=== PATIENT | female | born 1960 | race Caucasian/White ===

== ENCOUNTER 2017-07-14 18:30 | Emergency (ER) | payer OTHER ==
[~2017-07-14] VITALS: Ht 157.5 cm; Wt 67.1 kg
[2017-07-14 18:36] VITALS: TEMP 37; Ht 157.5 cm; Wt 67.1 kg
[2017-07-14 20:11] LABS: ALBUMIN 3.6 gm/dl (3.4-5.0); ALT/SGPT 33 U/L (12-78); BLOOD UREA NITROGEN 19 mg/dl (7-18); CALCIUM 8.8 mg/dl (8.5-10.1); CARBON DIOXIDE 26 mmol/L (21-32); CREATININE 0.75 mg/dl (0.60-1.20); GLUCOSE 78 mg/dl (70-99); POTASSIUM 3.8 mmol/L (3.5-5.1); SODIUM 139 mmol/L (136-145)
[2017-07-14 20:16] LABS: ALKALINE PHOSPHATASE 60 U/L (45-117); AST/SGOT 22 U/L (15-37); TOTAL PROTEIN 6.9 gm/dl (6.4-8.2)
[2017-07-14 20:20] LABS: BASO % 0.5 %; BASO ABS # 0.03 K/uL (0-0.2); EOS % 1.4 %; EOS ABS # 0.08 K/uL (0-0.5); HEMATOCRIT 39.3 % (37-47); HEMOGLOBIN 13.2 g/dL (12.0-16.0); IG# 0.01 K/uL (0.00-0.02); LYMPH % 26.6 %; LYMPH ABS # 1.55 K/uL (1.2-3.4); MEAN CELL VOLUME 87.5 fL (80-100); MEAN CORPUSCULAR HEMOGLOBIN 29.4 pg (25-34); MEAN CORPUSCULAR HGB CONC 33.6 g/dl (32-36); MEAN PLATELET VOLUME 10.5 fL (7.4-10.4); MONO % 10.8 %; MONO ABS # 0.63 K/uL (0.11-0.59); NEUT % 60.5 %; NEUT ABS # 3.53 K/uL (1.4-6.5); PLATELET COUNT 229 K/uL (130-400); RED CELL DISTRIBUTION WIDTH CV 14.1 % (11.5-14.5); RED CELL DISTRIBUTION WIDTH SD 45.4 fL (36.4-46.3); WHITE BLOOD COUNT 5.83 K/uL (4.8-10.8)
--- NOTE | 2017-07-14 20:23 | DIAGNOSTIC IMAGING REPORT ---
R VENOUS DOPP LOWER EXT UNILAT HISTORY: 57 years-old Female rle pain, edela acute right lower extremity pain and edema COMPARISON: None available TECHNIQUE: Multiple real-time sonographic images of the right lower extremity deep venous structures were obtained assessing grayscale appearance, color and spectral flow FINDINGS: Occlusive thrombus is noted within one of the two paired posterior tibial veins and also within both of the peroneal veins of the right calf. No additional deep venous thrombosis identified. IMPRESSION: Occlusive deep venous thrombosis is noted within one of the two paired posterior tibial veins and also within both of the peroneal veins of the right calf The above report was generated using voice recognition software. It may contain grammatical, syntax or spelling errors. Electronically signed by: Augustin Nichols M.D. 07/14/2017 8:22 PM Dictated Date/Time: 07/14/2017 8:20 PM
--- NOTE | 2017-07-14 20:27 | EMERGENCY ROOM VISIT NOTE ---
History Report prepared by Mumtaz: Madeline Brooks Under the Supervision of: Dr. Jessie Hobson D.O. First contact with patient: 18:57 Chief Complaint: CALF PAIN Stated Complaint: BLOOD CLOT IN RT CALF History of Present Illness The patient is a 57 year old female who presents to the Emergency Room with complaints of constant right calf pain beginning three weeks ago. The patient reports she fell and broke right ankle three weeks ago. She has had a cast on her right leg for the past three weeks which she had taken off today. When the patient had her cast taken off today, she mentioned to her physician her calf has been hurting more than ankle so she was sent over for an ultrasound. The patient had a Doppler at 5 pm in [place] today and was told she had a blood clot. The patient reports the vehicle monitor technician scanned her whole leg. The patient denies any personal or family history of blood clots. The patient takes three baby aspirins daily. The patient reports a history of kidney stones and a heart murmur. She denies any history of abnormal bleeding. Pt denies headache, change in vision, fevers, palpitations, chest pain, shortness of breath, nausea , vomiting, diarrhea, pain with urination, and melena. Source of History: patient Onset: three weeks ago Position: leg (right) Quality: other (pain) Timing: constant Associated Symptoms: No fevers, No headache, No chest pain, No SOB, No nausea, No vomiting, No diarrhea, No urinary symptoms Review of Systems See HPI for pertinent positives & negatives. A total of 10 systems reviewed and were otherwise negative. Past Medical & Surgical Medical Problems: (1) Heart murmur (2) Kidney stone (3) No significant medical problems (4) No significant past surgical history (5) Renal colic on right side (6) Renal colic, bilateral (7) Right ureteral calculus (8) Sacrococcygeal pain Family History Diabetes mellitus Kidney stones Social History Smoking Status: Never Smoker Alcohol Use: occasionally Marital Status: Housing Status: lives with family Occupation Status: employed Current/Historical Medications Scheduled Rivaroxaban (Xarelto), 1 TAB PO BID Allergies Coded Allergies: Astemizole (Verified Allergy, Severe, rash, 08/26/15) Cephalexin (Verified Allergy, Severe, rash, 08/26/15) Naproxen (Verified Allergy, Severe, rash, 08/26/15) Sulfa Drugs (Verified Allergy, Unknown, ., 08/26/15) Physical Exam Vital Signs Date Time Temp Pulse Resp B/P (MAP) Pulse Ox O2 Delivery O2 Flow Rate FiO2 07/14/17 21:00 73 20 149/76 96 Room Air 07/14/17 18:36 37.0 80 17 178/95 97 Room Air Physical Exam GENERAL: alert, well appearing, well nourished, no distress, non-toxic EYE EXAM: normal conjunctiva, PERRL and EOM's grossly intact OROPHARYNX: no exudate, no erythema, lips, buccal mucosa, and tongue normal and mucous membranes are moist NECK: supple, no nuchal rigidity, no adenopathy, non-tender LUNGS: Clear to auscultation. Normal chest wall mechanics HEART: no murmurs, S1 normal and S2 normal ABDOMEN: abdomen soft, non-tender, normo-active bowel sounds, no masses, no rebound or guarding. BACK: Back is symmetrical on inspection and there is no deformity, no midline tenderness, no CVA tenderness. SKIN: no rashes and no bruising UPPER EXTREMITIES: upper extremities are grossly normal. LOWER EXTREMITIES: Ecchymotic regions on right lower extremity, edema to right lower extremity, no palpable ropiness or mass, good pulses, mildly tender to palpation. NEURO EXAM: Normal sensorium, cranial nerves II-XII grossly intact, normal speech, no gross weakness of arms, no gross weakness of legs. Medical Decision & Procedures ER Provider Diagnostic Interpretation: Radiology results have been interpreted by the radiologist and reviewed by me. R VENOUS DOPP LOWER EXT UNILAT FINDINGS: Occlusive thrombus is noted within one of the two paired posterior tibial veins and also within both of the peroneal veins of the right calf. No additional deep venous thrombosis identified. IMPRESSION: Occlusive deep venous thrombosis is noted within one of the two paired posterior tibial veins and also within both of the peroneal veins of the right calf The above report was generated using voice recognition software. It may contain grammatical, syntax or spelling errors. Electronically signed by: Augustin Nichols M.D. Laboratory Results 07/14/17 19:40 Red Blood Count 4.49, Mean Corpuscular Volume 87.5, Mean Corpuscular Hemoglobin 29.4, Mean Corpuscular Hemoglobin Concent 33.6, Mean Platelet Volume 10.5, Neutrophils (%) (Auto) 60.5, Lymphocytes (%) (Auto) 26.6, Monocytes (%) (Auto) 10.8, Eosinophils (%) (Auto) 1.4, Basophils (%) (Auto) 0.5, Neutrophils # (Auto ) 3.53, Lymphocytes # (Auto) 1.55, Monocytes # (Auto) 0.63, Eosinophils # (Auto ) 0.08, Basophils # (Auto) 0.03 07/14/17 19:40 Test 07/14/17 19:40 White Blood Count 5.83 K/uL (4.8-10.8) Red Blood Count 4.49 M/uL (4.2-5.4) Hemoglobin 13.2 g/dL (12.0-16.0) Hematocrit 39.3 % (37-47) Mean Corpuscular Volume 87.5 fL (80-100) Mean Corpuscular Hemoglobin 29.4 pg (25-34) Mean Corpuscular Hemoglobin Concent 33.6 g/dl (32-36) Platelet Count 229 K/uL (130-400) Mean Platelet Volume 10.5 fL (7.4-10.4) Neutrophils (%) (Auto) 60.5 % Lymphocytes (%) (Auto) 26.6 % Monocytes (%) (Auto) 10.8 % Eosinophils (%) (Auto) 1.4 % Basophils (%) (Auto) 0.5 % Neutrophils # (Auto) 3.53 K/uL (1.4-6.5) Lymphocytes # (Auto) 1.55 K/uL (1.2-3.4) Monocytes # (Auto) 0.63 K/uL (0.11-0.59) Eosinophils # (Auto) 0.08 K/uL (0-0.5) Basophils # (Auto) 0.03 K/uL (0-0.2) RDW Standard Deviation 45.4 fL (36.4-46.3) RDW Coefficient of Variation 14.1 % (11.5-14.5) Immature Granulocyte % (Auto) 0.2 % Immature Granulocyte # (Auto) 0.01 K/uL (0.00-0.02) Anion Gap 8.0 mmol/L (3-11) Est Creatinine Clear Calc Drug Dose 73.5 ml/min Estimated GFR () 101.8 Estimated GFR (Non- 87.9 BUN/Creatinine Ratio 25.3 (10-20) Calcium Level 8.8 mg/dl (8.5-10.1) Total Bilirubin 0.4 mg/dl (0.2-1) Aspartate Amino Transf (AST/SGOT) 22 U/L (15-37) Alanine Aminotransferase (ALT/SGPT) 33 U/L (12-78) Alkaline Phosphatase 60 U/L (45-117) Troponin I < 0.015 ng/ml (0-0.045) Total Protein 6.9 gm/dl (6.4-8.2) Albumin 3.6 gm/dl (3.4-5.0) Globulin 3.3 gm/dl (2.5-4.0) Albumin/Globulin Ratio 1.1 (0.9-2) Laboratory results per my review. Medications Administered Medications (Trade) Dose Ordered Sig/Vincenzo Route Start Time Stop Time Status Last Admin Dose Admin Rivaroxaban (Xarelto Tab) 15 mg NOW STAT PO 07/14/17 21:01 07/14/17 21:02 DC 07/14/17 21:20 15 MG ED Course 1911: The patient was evaluated in room B4B. A complete history and physical exam was performed. 2114: Upon reevaluation, the patient is feeling better. I discussed the findings and the treatment plan with the patient. She verbalizes agreement and understanding. She was discharged home. Patient given coupons for Xarelto and first dose here. Medical Decision Differential diagnosis: Etiologies such as DVT, musculoskeletal, infection, joint effusion, trauma, lymphedema, idiopathic, CHF, as well as others were entertained.. Patient found to have isolated right lower extremity DVT likely secondary to recent trauma and immobilization in cast. Ecchymosis on patient's right lower extremity likely secondary to cast and usage of scooter. Patient with no symptoms to suggest other more proximal DVT or PE. Vital signs reassuring, EKG unremarkable, labs reassuring. Discussed with patient use of anticoagulation, follow-up with family doctor, adverse reactions as well as risks with use of anticoagulation, symptoms to watch and return for, she verbalized understanding was agreeable with plan. Did not feel patient required additional imaging for PE at this time and patient had no other symptoms. Medication Reconcilliation Current Medication List: was personally reviewed by me Blood Pressure Screening Patient's blood pressure: Elevated blood pressure Blood pressure disposition: Elevated BP felt to be situational Impression Primary Impression: Deep vein thrombosis (DVT) Additional Impression: Right calf pain Scribe Attestation The scribe's documentation has been prepared under my direction and personally reviewed by me in its entirety. I confirm that the note above accurately reflects all work, treatment, procedures, and medical decision making performed by me. Departure Information Dispostion Home / Self-Care Prescriptions Rivaroxaban (Xarelto) 15 Mg Tab 1 TAB PO BID, #42 TAB Prov: Jessie Hobson, DO 07/14/17 Referrals No Doctor, Assigned (PCP) Forms HOME CARE DOCUMENTATION FORM, IMPORTANT VISIT INFORMATION Patient Instructions My [facility] Additional Instructions Please call and follow-up with your family doctor regarding the blood clot noted today on ultrasound. Please continue to monitor closely for any change in her symptoms following the initiation of the blood center. If you notice any bleeding with a bowel movement, and your urine, frequent nosebleeds, coughing up blood, please return the emergency room. If you have any other new or concerning symptoms including palpitations, chest pain, trouble breathing, fevers, worsening pain in her leg, worsening swelling, color change to your leg or toes, please return to the ER. Problem Qualifiers Primary Impression: Deep vein thrombosis (DVT) DVT location: lower extremity Affected thrombotic vein of extremity: popliteal Chronicity: acute Laterality: right Qualified Codes: I82.431 - Acute embolism and thrombosis of right popliteal vein
[2017-07-14 21:00] VITALS: BP 149/76; PULSE 73; O2SAT 96
[2017-07-14] MEDS ORDERED: RIVAROXABAN TAB 15 MG TAB PO STA (21:01)
[2017-07-14] MEDS ORDERED: XRL15 PO (21:03)
== END 2017-07-14 21:23 | disposition home or self-care (01) ==
LOC: C.EDB 18:31
DX: I82.441 Acute embolism and thrombosis of right tibial vein (principal); R58 Hemorrhage, not elsewhere classified; R03.0 Elevated blood-pressure reading, without diagnosis of hypertension; Z87.81 Personal history of (healed) traumatic fracture; Z79.82 Long term (current) use of aspirin; Z79.899 Other long term (current) drug therapy; Z88.1 Allergy status to other antibiotic agents; Z88.6 Allergy status to analgesic agent; Z88.2 Allergy status to sulfonamides; Z88.8 Allergy status to other drugs, medicaments and biological substances; Z83.3 Family history of diabetes mellitus; Z84.1 Family history of disorders of kidney and ureter